=== PATIENT | male | born 1975 | race African-American/Black ===

== ENCOUNTER → 2020-04-27 | Emergency (ER) | payer SELFPAY ==
[~2020-04-27] VITALS: Ht 177.8 cm; Wt 81.6 kg
[~2020-04-27] MED LIST: SODIUM CHLORIDE 0.9% 1,000 ML IV ONE
[2020-04-27 17:00] VITALS: BP 122/78
[2020-04-27 18:15] LABS: Basophils # (auto) 0 10 ^3/uL (0-0.2); Basophils % (auto) 0.4 % (0.0-2.0); Eosinophils # (auto) 0.1 10 ^3/uL (0-0.8); Eosinophils % (auto) 1.4 % (0.0-7.0); Hemoglobin 14.3 g/dL (13.5-17.5); Lymphocytes # (auto) 1.2 10 ^3/uL (0.4-5.4); Lymphocytes % (auto) 34.1 % (10.0-50.0); Mean Corpuscular Hemoglobin 31.4 pg (28.0-32.0); Mean Corpuscular Hgb Conc. 32.6 g/dL (32.0-36.0); Mean Corpuscular Volume 96.3 fL (80.0-100.0); Monocytes # (auto) 0.3 10 ^3/uL (0-1.3); Monocytes % (auto) 9.4 % (0.0-12.0); Neutrophils % (auto) 54.7 % (37.0-80.0); Nucleated Red Blood Cells % 0.2 %; Platelet Count (auto) 223 10^3/uL (140-450); Red Blood Cells 4.56 10^6/uL (4.5-5.90); Red Cell Distribution Width 14.2 % (11.8-14.3); White Blood Cell 3.6 10^3/uL (4.4-10.8)
[2020-04-27 18:31] LABS: Albumin 3.6 g/dL (3.4-5.0); Calcium 8.2 mg/dL (8.5-10.1); Potassium 3.5 mmol/L (3.5-5.1)
[2020-04-27 18:36] LABS: BUN/Creatinine Ratio 20.4; Bilirubin, Total 0.7 mg/dL (0.2-1.0); Total Protein 7.9 g/dL (6.4-8.2)
[2020-04-27 19:51] LABS: Urine Bacteria NONE SEEN /hpf (None Seen); Urine Blood Negative /uL (Negative); Urine Hyaline Cast FEW /lpf (0 - 2); Urine Mucus FEW (None Seen); Urine Specific Gravity 1.014 (1.001-1.035); Urine WBC <1 /hpf (0 - 3)
[2020-04-27 20:11] LABS: Amphetamine Screen, Urine POSITIVE (NEGATIVE); Barbiturate Scree,Urine NEGATIVE (NEGATIVE); Benzodiazephine Screen, Urine NEGATIVE (NEGATIVE); Cannabinoid Screen, Urine POSITIVE (NEGATIVE); Cocaine Screen, Urine NEGATIVE (NEGATIVE); Opiate Scree,Urine NEGATIVE (NEGATIVE); Phencyclidine Screen, Urine NEGATIVE (NEGATIVE)
== END | disposition home or self-care (01) ==
LOC: ER 16:53 → EDBD 16:53
DX: G93.41 Metabolic encephalopathy (principal); E86.0 Dehydration
CPT/HCPCS: 36415; 70450; 71045; 80053; 80307; 80320; 81001; 84484; 85025; 93005; 96360; 99291

== ENCOUNTER → 2020-06-30 | Emergency (ER) | payer MEDICAID, OTHER ==
[~2020-06-30] VITALS: Ht 180.3 cm; Wt 72.6 kg
[2020-06-30 07:18] VITALS: BP 130/91
== END | disposition left against medical advice (07) ==
LOC: ER 07:09
DX: R42 Dizziness and giddiness (principal); Z53.21 Procedure and treatment not carried out due to patient leaving prior to being seen by health care provider
CPT/HCPCS: 82962; 93005